=== PATIENT | male | born 1990 | race Caucasian/White ===

== ENCOUNTER 2024-07-19 10:59 | Emergency (ER) | payer OTHER ==
[~2024-07-19] VITALS: Ht 175.3 cm; Wt 103.2 kg
[2024-07-19] MEDS ORDERED: tetanus & diphtheria toxoid (Td) vaccine 0.5ml IMVAC ONE (12:05)
--- NOTE | 2024-07-19 12:05 | Physician Documentation ---
History of Present Illness ~ Chief Complaint: Laceration Stated Complaint: HAND LAC Time Seen by MD: 11:40 HPI Presents to the ED with a complaint of a laceration on the medial aspect of his r left hand. States he cut it on a your door knob within there kitchen. He is not up-to-date in his tetanus as well. Tetanus Within 5 Years: No Medication Reconciliation Allergies: Coded Allergies: No Known Allergies (Unverified , 07/19/24) Review of Systems All Other Systems at this time: Reviewed and Negative ROS As stated above in the HPI, otherwise all systems are reviewed and negative. Physical Exam Vital Signs: Temperature: 98.5, Heart Rate: 98, Respiratory Rate: 14, BP: 132/74, Pulse Oximetry: 99, Weight: 103.200 Oxygen Flow Rate: 0 Physical Exam General: Alert, no apparent distress. Respiratory: Lungs clear, no respiratory distress. Cardiovascular: Regular rate and rhythm, no murmurs. extremtites: Medial aspect 1.5 cm laceration of the palm Neurologic: Oriented x4. Psychiatric: Normal mood and affect. Skin: Normal color, warm and dry. No edema, no ecchymosis. Procedures Laceration/Wound Repair Laceration : Anesthesia: Lidocaine Debrided: minimal Margins: revised Wound Repaired With: sutures Suture Size/Type: 4-0 Number of Superficial Sutures: 5 Dressing Applied: simple Tolerated Procedure Well?: yes, no complications Progress Results/Orders Results/Orders Completed Orders - BRANDON WEINBERG NP Lidocaine 1% 30ml Vial (Xylocaine 1% Via (07/19/24 11:57) Tetanus & Diphtheria Vacc.- Td (Tetanus (07/19/24 12:05) Tetanus/Pertuss/Diph Acell/Pf (Boostrix (07/19/24 12:10) Medications Received in ER Medications (Trade) Dose Ordered Sig/Maia Route PRN Reason Start Time Stop Time Status Last Admin Dose Admin (Boostrix vaccine syringe) 0.5 ml ONCE ONCE IMVAC 07/19/24 12:10 07/19/24 12:11 DC 07/19/24 12:19 0.5 ML Vital Signs 07/19/24 11:19 Temp 98.5 Pulse 98 Resp 14 B/P (MAP) 132/74 Pulse Ox 99 O2 Flow Rate 0 Medical Decision Making Findings As 4-0 sutures to revise an approximate laceration. Patient tolerated well. Differential Dx:Considerations: Include: Abrasion, Avulsion, Contusion, Laceration, Fracture, Hematoma, Neurovascular injury, Retained foreign body, Other Departure Disposition: 01 HOME / SELF CARE / HOMELESS Impression: Primary Impression: Laceration Condition: Stable Discharge Instructions: Laceration Care, Adult, [id number] Additional Instructions: Have sutures removed in 7-10 days keep the area clean and dry Referrals: NO PRIMARY CARE PROVIDER (PCP) Signature Scribe Signature: bv Attestation: The note accurately reflects work and decisions made by me.Brandon Weinberg - MERRY 07/19/24 12:04 BRANDON WEINBERG NP July 19, 2024 12:05
[2024-07-19] MEDS: LIDOcaine 1% 30ml preserv. free vial SQ STA (12:17)
[2024-07-19] MEDS: TETanus/Pertussis (Acell)/Diphther VAC/PF (Tdap-Adult) 0.5ml syringe IMVAC ONE (12:19)
[2024-07-19 13:11] VITALS: BP 128/70; PULSE 72; RESP 16; TEMP 98.5; O2SAT 98
== END 2024-07-19 13:19 | disposition home or self-care (01) ==
LOC: ER 11:00
DX: S61.411A Laceration without foreign body of right hand, initial encounter (principal); X58.XXXA Exposure to other specified factors, initial encounter; Y93.89 Activity, other specified; Y92.89 Other specified places as the place of occurrence of the external cause; Y99.8 Other external cause status
CPT/HCPCS: 12001; 90471; 90715; 99283; J7030; A6449